=== PATIENT | male | born 1980 | race Caucasian/White ===

== ENCOUNTER 2018-04-30 18:58 | Emergency (ER) | payer SELFPAY ==
--- NOTE | 2018-04-30 19:20 | ER Document Report ---
ED Medical Screen (RME) - General Chief Complaint: Bloody Stools Stated Complaint: BLOOD IN STOOL Time Seen by Provider: 04/30/18 19:14 TRAVEL OUTSIDE OF THE [place] IN LAST 30 DAYS: No - HPI Patient complains to provider of: Bloody stools Onset: Other - 37-year-old male who presents for evaluation of 2 episode of bloody stools today, he notes that his bright red blood in the toilet bowl, he notes that following that there were no blood clots there was some bleeding on the toilet paper. Is there anything like this in the past, does not take any blood thinners, has not had no trauma to the abdomen, has some abdominal discomfort. Has had his appendix removed in the past otherwise has no obvious medical problems. - Related Data Allergies/Adverse Reactions: codeine [Codeine] Allergy (Verified 04/30/18 19:12) ketorolac [From Toradol] Allergy (Verified 04/30/18 19:12) Penicillins Allergy (Verified 04/30/18 19:12) Past Medical History - Social History Chew tobacco use (# tins/day): No Frequency of alcohol use: Rare Drug Abuse: None Neurological Medical History: Reports: Hx Migraine Renal/ Medical History: Denies: Hx Peritoneal Dialysis Past Surgical History: Reports: Hx Appendectomy - Immunizations Hx Diphtheria, Pertussis, Tetanus Vaccination: Yes Physical Exam - Vital signs Vitals: Temp Pulse Resp BP Pulse Ox 98.1 F 70 16 117/71 100 04/30/18 19:05 04/30/18 19:05 04/30/18 19:05 04/30/18 19:05 04/30/18 19:05 Course - Re-evaluation Re-evalutation: 04/30/18 19:20 7-year-old male presents for evaluation of 2 episodes of bright red blood per rectum. Did have blood on the toilet paper. He has never had anything like this in the past, is ever a colonoscopy or other issue. Given that he is Bright red blood per rectum believe he would benefit from at least rectal examination just beyond the scope of this examination room. We will check a CBC as well to ensure that is not really exsanguinating. Patient is otherwise hemodynamically stable likely be discharged home with symptomatic care. - Vital Signs Vital signs: Temp Pulse Resp BP Pulse Ox 98.1 F 70 16 117/71 100 04/30/18 19:05 04/30/18 19:05 04/30/18 19:05 04/30/18 19:05 04/30/18 19:05
[2018-04-30 19:41] LABS: ABSOLUTE EOSINOPHILS # (AUTO) 0.1 10^3/uL (0.0-0.6); ABSOLUTE LYMPHOCYTES (AUTO) 2.2 10^3/uL (0.5-4.7); ABSOLUTE MONOCYTES (AUTO) 0.7 10^3/uL (0.1-1.4); ABSOLUTE NEUT (AUTO) 5.4 10^3/uL (1.7-8.2); BASOPHILS % (AUTO) 0.6 % (0-2); EOSINOPHILS % (AUTO) 0.8 % (0-6); HEMATOCRIT 43.4 % (37.9-51.0); LYMPHOCYTES % (AUTO) 26.1 % (13-45); MEAN CORPUSCULAR HEMOGLOBIN 31.4 pg (27.0-33.4); MEAN CORPUSCULAR HGB CONC 34.5 g/dL (32.0-36.0); MEAN CORPUSCULAR VOLUME 91 fl (80-97); MONOCYTES % (AUTO) 8.3 % (3-13); PLATELET COUNT 230 10^3/uL (150-450); RED BLOOD COUNT 4.77 10^6/uL (4.35-5.55); RED CELL DISTRIBUTION WIDTH 13.7 % (11.5-14.0); SEGMENTED NEUTROPHILS % (AUTO) 64.2 % (42-78); TOTAL CELLS COUNTED % (AUTO) 100 %; WHITE BLOOD COUNT 8.4 10^3/uL (4.0-10.5)
--- NOTE | 2018-04-30 19:46 | ER Document Report ---
ED General - General Chief Complaint: Bloody Stools Stated Complaint: BLOOD IN STOOL Time Seen by Provider: 04/30/18 19:14 Notes: Patient is a 37 year old male without chronic medical problems, does smoke tobacco daily, who presents with 2 episodes of bright red blood mixed with his stool. The patient states that both of these bowel movements occur today prompted him to come to the emergency department. The patient denies any additional symptoms. No blood without stool passage. He states that most the blood was on the tissue when he wipes. He has no history of similar symptoms in the past. He states that he is chronically constipated, strains to have bowel movements, has infrequent bowel movements. at the bedside relates a history of a very poor diet. Nothing is been noted to improve or worsen the patient's symptoms. He denies any abdominal pain, lightheadedness, shortness of breath or syncope. No use of anticoagulation. TRAVEL OUTSIDE OF THE [place] IN LAST 30 DAYS: No - Related Data Allergies/Adverse Reactions: codeine [Codeine] Allergy (Verified 04/30/18 19:12) ketorolac [From Toradol] Allergy (Verified 04/30/18 19:12) Penicillins Allergy (Verified 04/30/18 19:12) Past Medical History - General Information source: Patient - Social History Smoking Status: Current Every Day Smoker Cigarette use (# per day): Yes - 1 pack per day Chew tobacco use (# tins/day): No Smoking Education Provided: Yes - Smoking cessation counseling was provided for 4 minutes at the bedside Frequency of alcohol use: Rare Drug Abuse: None Lives with: Spouse/Significant other Family History: Reviewed & Not Pertinent Patient has suicidal ideation: No Patient has homicidal ideation: No Neurological Medical History: Reports: Hx Migraine Renal/ Medical History: Denies: Hx Peritoneal Dialysis Past Surgical History: Reports: Hx Appendectomy - Immunizations Hx Diphtheria, Pertussis, Tetanus Vaccination: Yes Review of Systems - Review of Systems Notes: Constitutional: Negative for fever. HENT: Negative for sore throat. Eyes: Negative for visual changes. Cardiovascular: Negative for chest pain. Respiratory: Negative for shortness of breath. Gastrointestinal: Negative for abdominal pain, vomiting or diarrhea. Positive for hematochezia Genitourinary: Negative for dysuria. Musculoskeletal: Negative for back pain. Skin: Negative for rash. Neurological: Negative for headaches, weakness or numbness. 10 point ROS negative except as marked above and in HPI. Physical Exam - Vital signs Vitals: Temp Pulse Resp BP Pulse Ox 98.1 F 70 16 117/71 100 04/30/18 19:05 04/30/18 19:05 04/30/18 19:05 04/30/18 19:05 04/30/18 19:05 Interpretation: Normal Notes: PHYSICAL EXAMINATION: GENERAL: Well-appearing, well-nourished and in no acute distress. HEAD: Atraumatic, normocephalic. EYES: Pupils equal round and reactive to light, extraocular movements intact, sclera anicteric, conjunctiva are normal. ENT: nares patent, oropharynx clear without exudates. Moist mucous membranes. NECK: Normal range of motion, supple without lymphadenopathy LUNGS: Breath sounds clear to auscultation bilaterally and equal. No wheezes rales or rhonchi. HEART: Regular rate and rhythm without murmurs ABDOMEN: Soft, nontender, normoactive bowel sounds. No guarding, no rebound. No masses appreciated. Rectal exam: No masses, brown stool. EXTREMITIES: Normal range of motion, no pitting or edema. No cyanosis. NEUROLOGICAL: No focal neurological deficits. Moves all extremities spontaneously and on command. PSYCH: Normal mood, normal affect. SKIN: Warm, Dry, normal turgor, no rashes or lesions noted. Course - Re-evaluation Re-evalutation: 04/30/18 19:43 Presentation is most consistent with internal hemorrhoids. No evidence of anemia on CBC. Patient's abdominal exam is otherwise benign. I do not suspect a more significant lower GI bleed or upper GI bleed based on history, vitals, normal hemoglobin, and patient's overall well appearance. Rectal examination with no gross blood, brown stool. Dietary and lifestyle recommendations have been discussed at length with the patient. At this time will discharge with return precautions and follow-up recommendations. Verbal discharge instructions given a the bedside and opportunity for questions given. Medication warnings reviewed. Patient is in agreement with this plan and has verbalized understanding of return precautions and the need for primary care follow-up in the next 24-72 hours. - Vital Signs Vital signs: Temp Pulse Resp BP Pulse Ox 98.5 F 69 18 102/62 99 04/30/18 19:59 08/26/18 19:59 04/30/18 19:59 04/30/18 19:59 04/30/18 19:59 - Laboratory Result Diagrams: 04/30/18 19:26 Discharge - Discharge Clinical Impression: Hematochezia, Tobacco abuse Constipation Qualifiers: Constipation type: unspecified constipation type Qualified Code(s): K59.00 - Constipation, unspecified Condition: Good Disposition: HOME, SELF-CARE Additional Instructions: You were seen today for internal hemorrhoids. The best treatment is to avoid straining while having bowel moments, avoiding heavy lifting, or any other activity that causes you to bear down forcefully. You need to make sure that your stools are soft and should start taking Docusate 200mg in the morning and at night until your stools are very soft and you can have a bowel movement without any straining. Long-term the best solution is to have an appropriate diet full of vegetables and fruit. If you are not able to get adequate fiber in your diet, 25-30 g daily, I recommend you begin supplementing fiber in your diet. There are multiple fiber supplementation options available over-the- counter. Return if you begin to have persistent bleeding, worsening pain, abdominal pain, fever >101, or any other symptoms that are concerning to you. Forms: Smoking Cessation Education, Return to Work
[2018-04-30 20:06] VITALS: BP 102/62
== END 2018-04-30 20:04 | disposition home or self-care (01) ==
LOC: ER 18:58
DX: K92.1 Melena (principal); K59.00 Constipation, unspecified; F17.210 Nicotine dependence, cigarettes, uncomplicated; Z88.5 Allergy status to narcotic agent; Z88.0 Allergy status to penicillin; Z88.8 Allergy status to other drugs, medicaments and biological substances
CPT/HCPCS: 36415; 85025; 99283; 99406